=== PATIENT | female | born 1995 | race Caucasian/White ===

== ENCOUNTER 2017-04-17 11:31 | Emergency (ER) | payer SELFPAY ==
[2017-04-17 11:47] VITALS: BP 114/55; BMI 33.8
== END 2017-04-17 13:25 | disposition home or self-care (01) ==
LOC: ER 11:42
DX: O26.859 Spotting complicating pregnancy, unspecified trimester (principal)
CPT/HCPCS: 99281

== ENCOUNTER 2017-07-14 09:01 | Observation (INO) | payer OTHER ==
[2017-07-14] MEDS ORDERED: SUPRANE IN ONE (11:10)
[2017-07-14] MEDS ORDERED: VERSED ONE (11:10)
[2017-07-14] MEDS ORDERED: DIPRIVAN VIAL ONE (11:10)
[2017-07-14] MEDS ORDERED: XYLOCAINE 1 % (PLAIN) ONE (11:10)
[2017-07-14] MEDS ORDERED: ZOFRAN INJ 4 MG VIAL ONE (11:10)
--- NOTE | 2017-07-14 11:29 | DR.VAGB ---
HPI - PCP Primary Care Physician: Emile - Source History Provided: Patient, EMS - Mode of Arrival Mode of Arrival: EMS - Timing Onset of Chief Complaint: 07/14/17 PMH - PMH Past Medical History: Yes Past Medical History: Asthma Past Surgical History: Yes Surgical History: HIDE TANNER Surgery, Tonsillectomy Past Surgical History Comment: d&c - Family History History of Family Medical Conditions: Yes Family Medical History: Cancer - Social History Does patient currently use any type of tobacco product: No Have you used tobacco products in the last 12 months: No Type of Tobacco Use: None Does any household member use tobacco: No Alcohol Use: None Do you use any recreational Drugs:: No Lives With: Family Lives Where: Home - infectious screening In the last 2 months have you had wt loss of >10#?: NO Have you had fever, night sweats or hemotysis?: No Have you traveled outside the country in the last 6 months?: No Isolation: Standard PE - Vital Signs Vitals: Temperature 98.1 F Pulse Rate [Left Radial] 86 Pulse Rate 86 Respiratory Rate 20 Blood Pressure [Left Arm] 121/67 Blood Pressure 121/67 O2 Sat by Pulse Oximetry 100
[2017-07-14] MEDS ORDERED: ZOFRAN INJ 4 MG VIAL IVP PRN ×2 (11:41→18:05)
[2017-07-14] MEDS ORDERED: DEMEROL INJ IVP PRN (11:42)
[2017-07-14] MEDS ORDERED: PHENERGAN INJ 25 MG IV PRN (13:50)
[2017-07-14] MEDS: D5 LR 1000 ML 1,000 ML IV SCH (14:10)
[2017-07-14 15:25] VITALS: BMI 34.0
[2017-07-14] MEDS ORDERED: LR 1000 ML IV 1,000 ML IV ONE ×2 (16:40→20:45)
[2017-07-14] MEDS ORDERED: FENTANYL INJ 100 mcg ONE (16:51)
[2017-07-14] MEDS ORDERED: HEMABATE IM ONE (17:34)
[2017-07-14] MEDS ORDERED: BENADRYL INJ 50 MG VIAL IVP PRN (18:05)
[2017-07-14] MEDS ORDERED: REGLAN INJ 10 MG VIAL IVP PRN (18:05)
[2017-07-14] MEDS ORDERED: DILAUDID INJ IVP PRN (18:05)
[2017-07-14] MEDS ORDERED: PHENERGAN INJ 25 MG IVP PRN (18:05)
[2017-07-14] MEDS ORDERED: PHENERGAN INJ 25 MG ONE (18:10)
[2017-07-14] MEDS ORDERED: NS 1000 ML 1,000 ML ONE ×2 (18:16→18:26)
[2017-07-14] MEDS ORDERED: NS 100 ML IV 100 ML with VENOFER 400 MG IV NR ×2 (19:00)
[2017-07-14] MEDS ORDERED: NS 100 ML IV 100 ML with VENOFER 400 MG IV ONE ×2 (19:00)
[2017-07-14] MEDS ORDERED: VENOFER IV ONE (19:43)
[2017-07-14 21:22] LABS: BASOPHILS % (AUTO) 0 % (0.2-1.0); LYMPHOCYTES # (AUTO) 0.9 X10^3/uL (1.3-2.9); LYMPHOCYTES % (AUTO) 4.2 % (21.0-51.0); MEAN CORPUSCULAR HEMOGLOBIN 26.3 pg (27.0-34.0); MEAN CORPUSCULAR HGB CONC 33.1 g/dL (33.0-35.0); MEAN CORPUSCULAR VOLUME 79.4 fL (80.0-100.0); MEAN PLATELET VOLUME 10.6 fL (7.4-11.0); MONOCYTES % (AUTO) 4.6 % (0.0-13.0); NEUTROPHILS # (AUTO) 20.3 x10^3/uL (2.2-4.8); NEUTROPHILS % (AUTO) 91.2 % (42.0-75.0); PLATELET COUNT 165 X10^3/uL (150.0-450.0); RED BLOOD COUNT 2.33 X10^6/uL (3.5-5.4); RED CELL DISTRIBUTION WIDTH 18.4 % (11.6-16.5); WHITE BLOOD COUNT 22.3 X10^3/uL (3.6-10.0)
[2017-07-14 21:23] LABS: ALANINE AMINOTRANSFERASE 10 Units/L (12-78); ALBUMIN 1.8 g/dL (3.4-5.0); ALKALINE PHOSPHATASE 46 Units/L (45-150); ASPARTATE AMINO TRANSFERASE 12 Units/L (15-37); BLOOD UREA NITROGEN 5 mg/dL (7-18); CALCIUM 7.2 mg/dL (8.5-10.1); CARBON DIOXIDE 21.4 mmol/L (21-32); CHLORIDE 106 mmol/L (98-107); COR NA(FOR HYPERGLY) 139 mmol/L (136-145); CREATININE 0.56 mg/dL (0.55-1.02); SODIUM 134 mmol/L (136-145); TOTAL PROTEIN 4.7 g/dL (6.4-8.2); eGFR BLACK RACES > 60 (>60); eGFR NON BLACK RACES > 60 (>60)
[2017-07-14 21:48] LABS: HEMOGLOBIN 6.1 g/dL (12.0-16.0)
[2017-07-14 21:49] LABS: HEMATOCRIT 18.5 % (36.0-47.0)
[2017-07-14 21:51] LABS: BAND NEUTROPHILS % 6 % (0-10); PLATELET MORPHOLOGY COMMENT NORMAL (NORMAL)
[2017-07-14 21:52] LABS: HYPOCHROMASIA SLIGHT
[2017-07-14] MEDS ORDERED: NS 500 ML IV 500 ML IV ONE (23:30)
[2017-07-15] MEDS ORDERED: NS 500 ML IV 500 ML IV ONE (03:56)
[2017-07-15] MEDS: D5 LR 1000 ML 1,000 ML IV SCH ×2 (06:16→07:21)
[2017-07-15 07:58] VITALS: BP 85/51
[2017-07-15 09:38] LABS: BASOPHILS % (AUTO) 0.3 % (0.2-1.0); EOSINOPHILS # (AUTO) 0.1 x10^3/uL (0.0-0.2); EOSINOPHILS % (AUTO) 1.2 % (0.9-2.9); HEMATOCRIT 22.8 % (36.0-47.0); LYMPHOCYTES # (AUTO) 1.7 X10^3/uL (1.3-2.9); LYMPHOCYTES % (AUTO) 15.5 % (21.0-51.0); MEAN CORPUSCULAR HEMOGLOBIN 27.5 pg (27.0-34.0); MEAN CORPUSCULAR VOLUME 78.5 fL (80.0-100.0); MONOCYTES # (AUTO) 0.9 x10^3/uL (0.3-0.8); MONOCYTES % (AUTO) 8.4 % (0.0-13.0); NEUTROPHILS % (AUTO) 74.6 % (42.0-75.0); PLATELET COUNT 140 X10^3/uL (150.0-450.0); RED CELL DISTRIBUTION WIDTH 17.8 % (11.6-16.5); WHITE BLOOD COUNT 10.7 X10^3/uL (3.6-10.0)
[2017-07-15 09:52] LABS: BLOOD UREA NITROGEN 3 mg/dL (7-18); CALCIUM 7.8 mg/dL (8.5-10.1); CARBON DIOXIDE 25.8 mmol/L (21-32); CHLORIDE 108 mmol/L (98-107); CREATININE 0.49 mg/dL (0.55-1.02); SODIUM 140 mmol/L (136-145); eGFR BLACK RACES > 60 (>60); eGFR NON BLACK RACES > 60 (>60)
[2017-07-15] MEDS ORDERED: LR 1000 ML IV 1,000 ML IV SCH (10:00)
== END 2017-07-15 11:40 | disposition home or self-care (01) ==
LOC: ER 09:08 → MED/SURG 10:31
PROVIDERS: ADMIT Obstetrics & Gynecology Obstetrics; ATTEND Specialist
PROC: 30233N1 Transfusion of Nonautologous Red Blood Cells into Peripheral Vein, Percutaneous Approach (ICD-10-PCS; 2017-07-14)
PROC: 10D17Z9 Manual Extraction of Products of Conception, Retained, Via Natural or Artificial Opening (ICD-10-PCS; principal; 2017-07-14 17:00)
DX: O03.4 Incomplete spontaneous abortion without complication (principal); Z3A.17 17 weeks gestation of pregnancy
CPT/HCPCS: 36415; 36430; 80048; 80053; 85025; 86850; 86900; 86901; 86922; 99284; A4222; P9016; G0378; J2001; J2175; J2250; J2405; J2550; J3010; J3490; J7120

== ENCOUNTER 2018-07-16 06:29 | Inpatient (IN) ==
[~2018-07-16 06:29] MED LIST: D5 1/2 NS 1000 ML 1,000 ML ONE; D5 1/2 NS 1L W PITOCIN 20 UNITS/L 20 UNITS/1,000 ML BAG IV ONE; D5LR 1L W PITOCIN 10 UNITS/L 10 UNITS/1,000 ML BAG IV ONE
[2018-07-16] MEDS ORDERED: PHENERGAN INJ 25 MG IM PRN ×2 (06:43→13:53)
[2018-07-16] MEDS ORDERED: REGLAN INJ 10 MG VIAL IVP PRN (06:43)
[2018-07-16] MEDS ORDERED: D5LR 1L W PITOCIN 10 UNITS/L 10 UNITS/1,000 ML BAG IV PRN (06:43)
[2018-07-16] MEDS ORDERED: D5 1/2 NS 1000 ML 1,000 ML IV SCH (06:43)
[2018-07-16] MEDS ORDERED: MORPHINE SULFATE INJ 2 MG INJ IVP PRN (06:43)
[2018-07-16] MEDS ORDERED: NUBAIN INJ 200 MG VIAL MULTIDOSE IVP PRN (06:43)
[2018-07-16] MEDS ORDERED: PITOCIN IVP ONE (06:43)
--- NOTE | 2018-07-16 07:38 | DR.OB ---
OB Quick Note - Assessment/Plan Assessment/Plan: L&D 07/16/18 at 7:20am S-No complaint. O-Afebrile,VSS XVF=297 with good LTV, +accel, no decel. CTX=none CVX=3cm/50%/-1/VTX AROM with clear fluid. IUPC and FSE placed. A-IUP at 38 4/7 weeks for induction h/o PTL Mccallum's Palsy P-Begin pitocin induction Anticipate
[2018-07-16] MEDS ORDERED: XYLOCAINE 1 % (PLAIN) ONE (08:41)
[2018-07-16] MEDS ORDERED: LR 1000 ML IV 1,000 ML ONE (08:41)
[2018-07-16] MEDS ORDERED: NAROPIN EPIDURAL 0.2% + FENTANYL 90MCG 60 ML EPI ONE (08:41)
[2018-07-16] MEDS ORDERED: XYLOCAINE 1% and EPINEPHRINE 1:100,000 ONE (08:41)
[2018-07-16] MEDS ORDERED: FENTANYL INJ 100 mcg ONE (08:42)
[2018-07-16] MEDS ORDERED: EPHEDRINE SULFATE INJ ONE (09:18)
[2018-07-16] MEDS ORDERED: REGLAN INJ 10 MG VIAL ONE (11:06)
[2018-07-16] MEDS ORDERED: PITOCIN ONE (11:11)
[2018-07-16] MEDS: D5 1/2 NS 1000 ML 1,000 ML with PITOCIN 20 UNITS IV SCH ×4 (13:40→21:27)
[2018-07-16] MEDS ORDERED: MOTRIN TAB 800 MG PO PRN (13:53)
--- NOTE | 2018-07-16 15:06 | DR.OB ---
OB Quick Note - Assessment/Plan Assessment/Plan: Delivery Note [employer] 07/16/18 at 13:36 Patient complete and pushing. Head directly OA and at perineum on pushing (1cm above resting). Baseline FHT's 70-90's for about 7 minutes. No rebound but good variability. Vacuum applied easily and head delivered with one push over intact perineum. Vacuum released. Nose and mouth bulb suctioned. No nuchal cord. Compound presentation with left hand at head noted. Body delivered over intact perineum. Cord clamped x 2 and cut. handed to attendant. Cord sent for gases. Placenta delivered spontaneously / intact / 3 vessel cord. No CVX tears. A small midline second degree tear noted and repaired with 0-vicryl in usual fasion. Viable female infant, VTX/OA, wt=6'12" and 8/9, stable to NBN. Mother stable to RR. JHT=341gf.
[2018-07-16] MEDS ORDERED: AMBIEN PO PRN (15:12)
[2018-07-16] MEDS ORDERED: DERMOPLAST SPRAY TOP PRN (15:12)
[2018-07-16] MEDS ORDERED: MILK OF MAGNESIA PO PRN (15:12)
[2018-07-16] MEDS ORDERED: ADACEL or BOOSTRIX TDaP VACCINE IM ONE (15:12)
[2018-07-16] MEDS: ZANTAC PO SCH (20:29)
[2018-07-17 05:17] LABS: HEMOGLOBIN 9.5 g/dL (12.0-16.0)
[2018-07-17] MEDS: D5 1/2 NS 1000 ML 1,000 ML with PITOCIN 20 UNITS IV SCH ×2 (05:48)
[2018-07-17] MEDS ORDERED: DEPO-PROVERA CONTRACEPTIVE INJ IM ONE ×2 (05:51→13:00)
[2018-07-17] MEDS ORDERED: PRENATAL PLUS PO SCH (09:00)
[2018-07-17] MEDS: ZANTAC PO SCH (09:02)
[2018-07-17 12:47] VITALS: BP 121/66
== END 2018-07-17 15:06 | disposition home or self-care (01) | DRG 807 ==
LOC: LD 06:29 → MED/SURG 15:21
PROVIDERS: ADMIT Specialist; ATTEND Specialist
DX: Z3A.38 38 weeks gestation of pregnancy; O26.893 Other specified pregnancy related conditions, third trimester; Z37.0 Single live birth; Z23 Encounter for immunization; O09.213 Supervision of pregnancy with history of pre-term labor, third trimester; O99.613 Diseases of the digestive system complicating pregnancy, third trimester; Z01.818 Encounter for other preprocedural examination; G51.0 Bell's palsy; O70.1 Second degree perineal laceration during delivery
CPT/HCPCS: 36415; 59409; 80048; 80307; 81001; 85014; 85018; 85025; 86592; 86850; 86900; 86901; 90715; A4216; A4222; S0197; G0434; J1050; J2590; J2765; J3010; J3490; J7120; S5010